=== PATIENT | female | born 1970 | race Caucasian/White ===

== ENCOUNTER → 2019-06-13 | Outpatient (CLI) | payer OTHER ==
[~2019-06-13] MED LIST: CELEXA20 MG PO; MASON NATURAL2000 IU; PRAVACHOL40 MG; PRILOSEC20 M1 PO; SYNTHROID,LEV100 MCG PO; VITAMIN B COMPL
== END | disposition home or self-care (01) ==
LOC: COVID19 09:01
DX: R50.81 Fever presenting with conditions classified elsewhere (principal)